=== PATIENT | male | born 1985 | race Caucasian/White ===

== ENCOUNTER 2020-12-01 20:58 | Emergency (ER) | payer OTHER ==
[~2020-12-01] VITALS: Ht 190.5 cm; Wt 95.3 kg
[~2020-12-01 20:58] MED LIST: PERCOCET 5-3251 EACH PO; PREDNISONE50 MG PO; PROAIR HFA8.5 GM INH; TESSALON PERLE100 MG PO; VENTOLIN HFA 1818 GM INH
[2020-12-01 21:49] LABS: BE -0.3 mmol/L (-2 to +3); PCO2 39.6 mmHg (35.0-45.0); PO2 72.8 mmHg (75.0-100.0); pH 7.405 (7.340-7.450)
[2020-12-01] MEDS ORDERED: VENTOLIN HFA 1818 GM INH (22:10)
[2020-12-01] MEDS ORDERED: MEDROLDOSEPACK PO (22:10)
[2020-12-01 22:22] VITALS: BP 142/74
== END 2020-12-01 22:23 | disposition home or self-care (01) ==
LOC: M.ERS 20:58
PROVIDERS: Nurse Practitioner Family
DX: R05 Cough (principal); Z77.098 Contact with and (suspected) exposure to other hazardous, chiefly nonmedicinal, chemicals; Z88.8 Allergy status to other drugs, medicaments and biological substances; J45.909 Unspecified asthma, uncomplicated